=== PATIENT | female | born 1960 | race Caucasian/White ===

== ENCOUNTER 2019-05-20 16:53 | Emergency (ER) | payer OTHER ==
[~2019-05-20] VITALS: Ht 172.7 cm; Wt 108.9 kg
[~2019-05-20 16:53] MED LIST: DIOVAN320 MG PO
[2019-05-20] MEDS ORDERED: SODIUM CHLORIDE 0.9% 1000ML 1,000 ML IV STA (16:56)
--- OUTSIDE RECORDS SUMMARY | 2019-05-20 16:56 | XMS REPORT | Continuity of Care Document ---
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 [employer] Unavailable Unavailable Problems Problem Status Onset Date Classification Date Reported Comments Source Body mass index 30+ - obesity 01/08/2019 Diagnosis 01/08/2019 [facility] Elevated blood pressure 01/08/2019 Diagnosis 01/08/2019 [facility] Acute upper respiratory infection 01/08/2019 Diagnosis 01/08/2019 [facility] Dysuria 11/14/2018 Diagnosis 11/17/2018 [facility] Hypothyroidism 11/14/2018 Problem 01/08/2019 [facility] Hypertensive Disorder 11/14/2018 Problem 01/08/2019 [facility] Chronic Sinusitis Problem 01/08/2019 [facility] Allergic Rhinitis Problem 01/08/2019 [facility] Asthma Problem 01/08/2019 [facility] Skin Lesion Problem 01/08/2019 [facility] Medications Medication Details Route Status Patient Instructions Ordering Provider Order Date Source Fluticasone propionate 0.25 MG/ACTUAT / salmeterol 0.05 MG/ACTUAT Dry Powder Inhaler Advair Diskus 250 mcg-50 mcg/dose powder for inhalation Inhale 1 puff twice a day by inhalation route. Active [facility] benzonatate 200 MG Oral Capsule benzonatate 200 mg capsule Take 1 capsule 3 times a day by oral route as needed for 10 days. Active [facility] Azelastine hydrochloride 0.137 MG/ACTUAT / Fluticasone propionate 0.05 MG/ACTUAT Metered Dose Nasal [place] [Dymista] Dymista 137 mcg-50 mcg/spray nasal spray Take 1 spray twice a day by nasal route as directed for 14 days. Active [facility] levocetirizine dihydrochloride 5 MG Oral Tablet levocetirizine 5 mg tablet TAKE ONE (1) TABLET(S) BY MOUTH TWICE A DAY. Active [facility] Levothyroxine Sodium 0.025 MG Oral Tablet levothyroxine 25 mcg tablet Active [facility] Hydrochlorothiazide 25 MG / Losartan Potassium 100 MG Oral Tablet losartan 100 mg-hydrochlorothiazide 25 mg tablet Active [facility] Medrol (Sanjay) 4 mg tablets in a dose pack Medrol (Sanjay) 4 mg tablets in a dose pack Take 1 dose pk by oral route. Active [facility] montelukast 10 MG Oral Tablet montelukast 10 mg tablet TAKE ONE (1) TABLET(S) BY MOUTH ONCE A DAY IN THE EVENING. Active [facility] Phenazopyridine hydrochloride 200 MG Oral Tablet phenazopyridine 200 mg tablet TAKE 1 TABLET(S) 3 TIMES A DAY BY ORAL ROUTE FOR 3 DAYS. Active [facility] Budesonide 0.16 MG/ACTUAT / formoterol fumarate 0.0045 MG/ACTUAT Metered Dose Inhaler Symbicort 160 mcg-4.5 mcg/actuation HFA aerosol inhaler Active [facility] Budesonide 0.08 MG/ACTUAT / formoterol fumarate 0.0045 MG/ACTUAT Metered Dose Inhaler Symbicort 80 mcg-4.5 mcg/actuation HFA aerosol inhaler INHALE TWO (2) PUFFS BY MOUTH TWICE A DAY (IN THE MORNING AND EVENING). Active [facility] Hydrochlorothiazide 12.5 MG / valsartan 320 MG Oral Tablet valsartan 320 mg-hydrochlorothiazide 12.5 mg tablet TAKE ONE (1) TABLET(S) BY MOUTH ONCE A DAY. Active [facility] Hydrochlorothiazide 25 MG / valsartan 320 MG Oral Tablet valsartan 320 mg-hydrochlorothiazide 25 mg tablet TAKE ONE (1) TABLET(S) BY MOUTH ONCE A DAY. Active [facility] 200 ACTUAT Albuterol 0.09 MG/ACTUAT Metered Dose Inhaler [Ventolin] Ventolin HFA 90 mcg/actuation aerosol inhaler INHALE ONE (1) TO TWO (2) PUFFS BY MOUTH EVERY 4 TO 6 HOURS NEEDED. Active [facility] NITROFURANTOIN, MACROCRYSTALS 25 MG / Nitrofurantoin, Monohydrate 75 MG Oral Capsule [Macrobid] Macrobid 100 mg capsule Take 1 capsule every 12 hours by oral route for 7 days. Active [facility] Albuterol 0.09 MG/ACTUAT Metered Dose Inhaler Ventolin HFA 90 mcg/actuation aerosol inhaler INHALE ONE (1) TO TWO (2) PUFFS BY MOUTH EVERY 4 TO 6 HOURS NEEDED. Active [facility] Allergies, Adverse Reactions, Alerts No Known Medication Allergies Immunizations Immunization Date Given Site Status Last Updated Comments Source influenza, unspecified formulation 08/27/2010 completed [facility] Results Order Name Results Value Reference Range Date Interpretation Comments Source Influenza A negative 01/08/2019 [facility] Influenza B negative 01/08/2019 [facility] Urinalysis macro (dipstick) panel - Urine COLOR : Yellow 11/14/2018 [facility] Urinalysis macro (dipstick) panel - Urine CLARITY : Clear 11/14/2018 [facility] Urinalysis macro (dipstick) panel - Urine LEUKOCYTES : Small 11/14/2018 [facility] Urinalysis macro (dipstick) panel - Urine NITRITES : Positive 11/14/2018 [facility] Urinalysis macro (dipstick) panel - Urine UROBILINOGEN : 1 11/14/2018 [facility] Urinalysis macro (dipstick) panel - Urine PROTEIN : 100 11/14/2018 [facility] Urinalysis macro (dipstick) panel - Urine pH : 7.0 11/14/2018 [facility] Urinalysis macro (dipstick) panel - Urine BLOOD : Moderate 11/14/2018 [facility] Urinalysis macro (dipstick) panel - Urine SPECIFIC GRAVITY : 1.015 11/14/2018 [facility] Urinalysis macro (dipstick) panel - Urine KETONES : Small 11/14/2018 [facility] Urinalysis macro (dipstick) panel - Urine BILIRUBIN : Negative 11/14/2018 [facility] Urinalysis macro (dipstick) panel - Urine GLUCOSE Negative 11/14/2018 [facility] Pathology Reports No Data Provided for This Section Diagnostic Reports No Data Provided for This Section Consultation Notes No Data Provided for This Section Discharge Summaries No Data Provided for This Section History and Physicals No Data Provided for This Section Vital Signs Vital Sign Value Date Comments Source Diastolic (mm Hg) 80 01/08/2019 [facility] Height 69 01/08/2019 [facility] Systolic (mm Hg) 120 01/08/2019 [facility] Weight 240 01/08/2019 [facility] Diastolic (mm Hg) 96 11/14/2018 [facility] Height 69 11/14/2018 [facility] Systolic (mm Hg) 150 11/14/2018 [facility] Weight 240 11/14/2018 [facility] Encounters Location Location Details Encounter Type Encounter Number Reason For Visit Attending Provider ADM Date DC Date Status Source [place] - [facility] - [id number] Larios Ifeanyisuzy, [facility]: [address] [place] [address], Ph. [id number] Alysonorlando Orisakmichael 11/14/2018 [facility] [place] [facility] [id number] Larios Una, [facility]: [address] [place] [address], Ph. [id number] Carlosfidencioleila Suggssakarlwe 11/14/2018 [facility] [place] - [facility] - [id number] Shieldsorlnado Suggssuzy, [facility]: [address] [place] [address], Ph. [id number] Ric Orisakarlwe 01/08/2019 [facility] Procedures Procedure Code Date Perfomer Comments Source Delivery [address] [facility] Assessment and Plan No Data Provided for This Section Plan of Care No Data Provided for This Section Social History Social History Date Source Smoking Status Never Smoker 06/26/2011 [facility] Family History No Data Provided for This Section Advance Directives No Data Provided for This Section Functional Status No Data Provided for This Section
--- OUTSIDE RECORDS SUMMARY | 2019-05-20 16:56 | XMS REPORT | Clinical Summary ---
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 Active montelukast (SINGULAIR) 0 10 mg tablet 8 Active Problems Not on file Encounters Care Team Description Date Type Specialty Mehreen Santana MD Pap smear for cervical cancer screening (Primary Dx) 07/23/2018 Office Visit Obstetrics and Gynecology after 05/19/2018 Family History Medical History Relation Name Comments COPD Father Parkinsonism Father Heart disease Mother Relation Name Status Comments Father Mother Social History Date Tobacco Use Types Packs/Day Years Used Never Smoker Smokeless Tobacco: Never Used Alcohol Use Drinks/Week oz/Week Comments No Sex Assigned at Date Recorded Not on file Industry Job Start Date Occupation Not on file Not on file Not on file Travel End Travel History Travel Start No recent travel history available. Last Filed Vital Signs Time Taken Vital Sign Reading 07/23/2018 8:22 AM CDT Blood Pressure 183/107 07/23/2018 8:22 AM CDT Pulse 81 - Temperature - - Respiratory Rate - - Oxygen Saturation - - Inhaled Oxygen - Concentration 07/23/2018 8:22 AM CDT Weight 112 kg (246 lb) 07/23/2018 8:22 AM CDT Height 174.2 cm (5' 8.6") 07/23/2018 8:22 AM CDT Body Mass Index 36.75 Plan of Treatment Health Maintenance Due Date Last Done Comments BREAST CANCER SCREENING 2012 COLONOSCOPY SCREENING 2012 SHINGLES VACCINES (#1) 2012 INFLUENZA VACCINE 05/27/2019 Procedures Comments Procedure Name Priority Date/Time Associated Diagnosis PAP IG, RFX HPV ASCU Routine 07/23/2018 Pap smear for cervical 9:14 AM CDT cancer screening after 05/19/2018 Results * Pap IG, rfx HPV ASCU (07/23/2018 9:14 AM CDT) Diagnosis CommentComment: NEGATIVE FOR [facility] INTRAEPITHELIAL LESION AND MALIGNANCY. Specimen Comment [facility] adequacy Comment: Satisfactory for evaluation.Endocervical and/or squamous metaplastic cells (endocervical component) are present. Clinician CommentComment: Z12.4 [facility] provided ICD10 Performed by: CommentComment: Cecilio De La Vega, Chief Of Staff Doctor (ASCP) Comment . [facility] Note: Comment [facility] Comment: The Pap smear is a screening test designed to aid in the detection of premalignant and malignant conditions of the uterine cervix.It is not a diagnostic procedure and should not be used as the sole means of detecting cervical cancer.Both false-positive and false-negative reports do occur. Test Comment [facility] methodology Comment: This liquid based ThinPrep(R) pap test was screened with the use of an image guided system. Reflex Comment [facility] Comment: The HPV DNA reflex criteria were not met with this specimen result therefore, no HPV testing was performed. Specimen Swab Narrative Performed At Performed at:01 - [facility] [address] [facility], [id number] Assignment Editor: Keri Croft MD, Phone:[phone] Specimen Comment: No. of containers..01 ThinPrep Vial Performing Organization Address City/State/Zipcode Phone Number [facility] after 05/19/2018 Insurance Type Payer Benefit Subscriber ID Effective Phone Address Plan / Dates Group HMO/PPO [facility] xxxxxxxxx 2017-P THCARE resent CHOICE/CHO ICE + Advance Directives Patient has advance care planning documents on file. For more information, kimmie e contact: Elmo [address] [place] [address]
--- OUTSIDE RECORDS SUMMARY | 2019-05-20 16:56 | XMS REPORT | Encounter Summary ---
Author Organization Unknown Address [address] [place] [address] Phone [phone] Reason for Visit Medical Complaint Instructions 1. Acute upper respiratory infection upper respiratory infection (cold): care instructions benzonatate 200 mg capsule Medrol (Sanjay) 4 mg tablets in a dose pack rapid flu (A+B) 2. Elevated blood pressure elevated blood pressure: care instructions dash diet: care instructions blood pressure monitoring education 3. Body mass index 30+ - obesity body mass index: care instructions learning about healthy weight Discussion Note: None recorded. Plan of Care Patient Instructions An upper respiratory infection, or URI, is an infection of the nose, sinuses, or throat. URIs are spread by coughs, sneezes, and direct contact. The common cold is the most frequent kind of URI. The flu and sinus infections are other kinds of URIs. Almost all URIs are caused by viruses. Antibiotics won't cure them. But you can treat most infections with home care. This may include drinking lots of fluids and taking tgyw-edh-jhtkvne pain medicine. You will probably feel better in 4 to 10 days. The doctor has checked you carefully, but problems can develop later. If you notice any problems or new symptoms, get medical treatment right away. Follow-up care is a loja part of your treatment and safety. Be sure to make and go to all appointments, and call your doctor if you are having problems. It's also a good idea to know your test results and keep a list of the medicines you take. How can you care for yourself at home? To prevent dehydration, drink plenty of fluids, enough so that your urine is light yellow or clear like water. Choose water and other caffeine-free clear liquids until you feel better. If you have kidney, heart, or liver disease and have to limit fluids, talk with your doctor before you increase the amount of fluids you drink. Take an xvkn-ohc-puaxmsk pain medicine, such as acetaminophen (Tylenol), ibuprofen (Advil, Motrin), or naproxen (Aleve). Read and follow all instructions on the label. Before you use cough and cold medicines, check the label. These medicines may not be safe for young children or for people with certain health problems. Be careful when taking jvsz-tcg-vwoqpww cold or flu medicines and Tylenol at the same time. Many of these medicines have acetaminophen, which is Tylenol. Read the labels to make sure that you are not taking more than the recommended dose. Too much acetaminophen (Tylenol) can be harmful. Get plenty of rest. Do not smoke or allow others to smoke around you. If you need help quitting, talk to your doctor about stop-smoking programs and medicines. These can increase your chances of quitting for good. When should you call for help? Call 911 anytime you think you may need emergency care. For example, call if: You have severe trouble breathing. Call your doctor now or seek immediate medical care if: You seem to be getting much sicker. You have new or worse trouble breathing. You have a new or higher fever. You have a new rash. Watch closely for changes in your health, and be sure to contact your doctor if: You have a new symptom, such as a sore throat, an earache, or sinus pain. You cough more deeply or more often, especially if you notice more mucus or a change in the color of your mucus. You do not get better as expected. Reminders Provider Appointments None recorded. Lab Rapid Flu (A+B) 01/08/2019 [facility] Referral None recorded. Procedures None recorded. Surgeries None recorded. Imaging None recorded. Medications Name Start Date Advair Diskus 250 mcg-50 mcg/dose powder for inhalation Inhale 1 puff twice a day by inhalation route. benzonatate 200 mg capsule Take 1 capsule 3 times a day by oral route as needed for 10 days. Dymista 137 mcg-50 mcg/spray nasal spray Take 1 spray twice a day by nasal route as directed for 14 days. levocetirizine 5 mg tablet TAKE ONE (1) TABLET(S) BY MOUTH TWICE A DAY. levothyroxine 25 mcg tablet losartan 100 mg-hydrochlorothiazide 25 mg tablet Medrol (Sanjay) 4 mg tablets in a dose pack Take 1 dose pk by oral route. montelukast 10 mg tablet TAKE ONE (1) TABLET(S) BY MOUTH ONCE A DAY IN THE EVENING. phenazopyridine 200 mg tablet TAKE 1 TABLET(S) 3 TIMES A DAY BY ORAL ROUTE FOR 3 DAYS. Symbicort 160 mcg-4.5 mcg/actuation HFA aerosol inhaler Symbicort 80 mcg-4.5 mcg/actuation HFA aerosol inhaler INHALE TWO (2) PUFFS BY MOUTH TWICE A DAY (IN THE MORNING AND EVENING). valsartan 320 mg-hydrochlorothiazide 12.5 mg tablet TAKE ONE (1) TABLET(S) BY MOUTH ONCE A DAY. valsartan 320 mg-hydrochlorothiazide 25 mg tablet TAKE ONE (1) TABLET(S) BY MOUTH ONCE A DAY. Ventolin HFA 90 mcg/actuation aerosol inhaler INHALE ONE (1) TO TWO (2) PUFFS BY MOUTH EVERY 4 TO 6 HOURS NEEDED. Medications Administered None recorded. Vitals Height Weight BMI Blood Pressure 5 ft 9 in 240 lbs 35.4 kg/m2 (1) 126/82 mm[Hg] (2) 120/80 mm[Hg] Lab Results Date Name Specimen Result Interpretation Description Value Range Status Address Rapid Flu (A+B) Influenza a negative [facility]: [address] [place] [address] Influenza B negative [facility]: [address] [place] [address] Allergies Code Code System Name Reaction Severity Status Onset NKDA Problems Name Status Onset Date Source Hypothyroidism Active 11/14/2018 Hypertensive Disorder Active 11/14/2018 Chronic Sinusitis Active Encounter Allergic Rhinitis Active Encounter Asthma Active Encounter Skin Lesion Active Encounter Procedures Date Name Performed by Delivery Information not available Vaccine List Vaccine Type influenza, unspecified formulation 08/27/2010 Social History Smoking Status Never Smoker Past Encounters 01/08/2019 Acute Upper Respiratory Infection; Elevated Blood Pressure; Body Mass Index 30+ - Obesity [facility]: [address] [place] [address], Ph. History of Present Illness [id number] Reported By: Patient HPI: Location: chest. Quality: productive cough, hacking cough, dry cough. Duration: 2days. Context: no sick contacts, no foreign travel, non-smoker, asthma. Modifying factors: OTC medication. Associated Symptoms: no sputum production, no shortness of breath, no wheezing, no change in number of pillows needed to sleep at night, no sweats, no significant weight gain, no significant weight loss, no sore throat, no vomiting, no diarrhea, no rash, no nausea, no fever, fatigue, morning cough, muscle aches, headache Review of Systems:ROS as noted in the HPI Review of Systems Basic Reported By: Patient Physical Exam Adult Basic, Adult Female Complete Reported By: Patient Constitutional: General Appearance: obese. Level of Distress: NAD. Ambulation: ambulating normally Psychiatric: Mental Status: active and alert. Orientation: to time, to place, to person Kna-Ythw-Wlgnt-Throat: Ears: no lesions on external ear, no outer ear tenderness, EACs clear, TMs clear. Hearing: no hearing loss. Nose: no lesions on external nose, nares patent, no septal deviation, nasal passages clear, no sinus tenderness, no nasal discharge. Lips, Teeth, and Gums: no mouth or lip ulcers, no bleeding gums, normal dentition. Oropharynx: moist mucous membranes, no erythema, no exudates, tonsils not enlarged Lungs: Respiratory effort: no dyspnea, no tachypnea, no use of accessory muscles, no intercostal retractions. Auscultation: breath sounds normal Cardiovascular: Heart Auscultation: RRR, no murmurs
--- OUTSIDE RECORDS SUMMARY | 2019-05-20 16:56 | XMS REPORT | Encounter Summary ---
Author Organization Unknown Address [address] [place] [address] Phone [phone] Reason for Visit Medical Complaint Instructions 1. Dysuria painful urination (dysuria): care instructions Macrobid 100 mg capsule phenazopyridine 200 mg tablet urinalysis, dipstick culture, urine 2. Elevated blood pressure elevated blood pressure: care instructions dash diet: care instructions blood pressure monitoring education 3. Body mass index 30+ - obesity body mass index: care instructions learning about healthy weight Discussion Note: None recorded. Plan of Care Patient Instructions A urinary tract infection, or UTI, is a general term for an infection anywhere between the kidneys and the urethra (where urine comes out). Most UTIs are bladder infections. They often cause pain or burning when you urinate. UTIs are caused by bacteria and can be cured with antibiotics. Be sure to complete your treatment so that the infection goes away. How can you care for yourself at home? Take your antibiotics as directed. Do not stop taking them just because you feel better. You need to take the full course of antibiotics. Drink extra water and other fluids for the next day or two. This may help wash out the bacteria that are causing the infection. (If you have kidney, heart, or liver disease and have to limit fluids, talk with your doctor before you increase your fluid intake.) Avoid drinks that are carbonated or have caffeine. They can irritate the bladder. Urinate often. Try to empty your bladder each time. To relieve pain, take a hot bath or lay a heating pad set on low over your lower belly or genital area. Never go to sleep with a heating pad in place. To prevent UTIs Drink plenty of water each day. This helps you urinate often, which clears bacteria from your system. (If you have kidney, heart, or liver disease and have to limit fluids, talk with your doctor before you increase your fluid intake.) Urinate when you need to. Urinate right after you have sex. Change sanitary pads often. Avoid douches, bubble baths, feminine hygiene sprays, and other feminine hygiene products that have deodorants. After going to the bathroom, wipe from front to back. When should you call for help? Call your doctor now or seek immediate medical care if: Symptoms such as fever, chills, nausea, or vomiting get worse or appear for the first time. You have new pain in your back just below your rib cage. This is called flank pain. There is new blood or pus in your urine. You have any problems with your antibiotic medicine. Watch closely for changes in your health, and be sure to contact your doctor if: You are not getting better after taking an antibiotic for 2 days. Your symptoms go away but then come back. Reminders Provider Appointments None recorded. Lab Urinalysis, Dipstick 11/14/2018 [facility] Culture, Urine 11/14/2018 [facility] Referral None recorded. Procedures None recorded. Surgeries None recorded. Imaging None recorded. Medications Name Start Date Advair Diskus 250 mcg-50 mcg/dose powder for inhalation Inhale 1 puff twice a day by inhalation route. Dymista 137 mcg-50 mcg/spray nasal spray Take 1 spray twice a day by nasal route as directed for 14 days. levocetirizine 5 mg tablet TAKE ONE (1) TABLET(S) BY MOUTH TWICE A DAY. levothyroxine 25 mcg tablet losartan 100 mg-hydrochlorothiazide 25 mg tablet Macrobid 100 mg capsule Take 1 capsule every 12 hours by oral route for 7 days. montelukast 10 mg tablet TAKE ONE (1) TABLET(S) BY MOUTH ONCE A DAY IN THE EVENING. phenazopyridine 200 mg tablet Take 1 tablet 3 times a day by oral route for 3 days. Symbicort 160 mcg-4.5 mcg/actuation HFA aerosol inhaler Symbicort 80 mcg-4.5 mcg/actuation HFA aerosol inhaler INHALE TWO (2) PUFFS BY MOUTH TWICE A DAY (IN THE MORNING AND EVENING). Ventolin HFA 90 mcg/actuation aerosol inhaler INHALE ONE (1) TO TWO (2) PUFFS BY MOUTH EVERY 4 TO 6 HOURS NEEDED. Medications Administered None recorded. Vitals Height Weight BMI Blood Pressure 5 ft 9 in 240 lbs 35.4 kg/m2 150/96 mm[Hg] Lab Results Date Name Specimen Result Interpretation Description Value Range Status Address Urinalysis, Dipstick Color : Yellow [facility]: [address] [place] [address] Clarity : Clear [facility]: [address] [place] [address] Leukocytes : Small [facility]: [address] [place] [address] Nitrites : Positive [facility]: [address] [place] [address] Urobilinogen : 1 [facility]: [address] [place] [address] Protein : 100 [facility]: [address] [place] [address] Ph : 7.0 [facility]: [address] [place] [address] Blood : Moderate [facility]: [address] [place] [address] Specific [place] : 1.015 [facility]: [address] [place] [address] Ketones : Small [facility]: [address] [place] [address] Bilirubin : Negative [facility]: [address] [place] [address] Glucose Negative [facility]: [address] [place] [address] Allergies Code Code System Name Reaction Severity Status Onset NKDA Problems Name Status Onset Date Source Hypothyroidism Active 11/14/2018 Hypertensive Disorder Active 11/14/2018 Chronic Sinusitis Active Encounter Allergic Rhinitis Active Encounter Asthma Active Encounter Skin Lesion Active Encounter Procedures Date Name Performed by Delivery Information not available Vaccine List Vaccine Type influenza, unspecified formulation 08/27/2010 Social History Smoking Status Never Smoker Past Encounters 11/14/2018 Dysuria; Elevated Blood Pressure; Body Mass Index 30+ - Obesity [facility]: [address] [place] [address], Ph. History of Present Illness [id number] Reported By: Patient HPI: Location: urethra. Quality: pain, pressure, burning. Severity: mild. Context: not sexually active, no known exposure to STD, no prior history of STDs. Associated Symptoms: no fever/chills, no flank pain, no jaundice, no blood in the urine, no pain during urination, no vaginal discharge, no urgency, no blisters on genitals, no rash on genitals, no muscle aches, no headache, burning sensation during urination, urinary frequency, feeling of incomplete emptying of bladder Review of Systems:ROS as noted in the HPI Review of Systems Basic Reported By: Patient Physical Exam Adult Basic, Adult Female Complete Reported By: Patient Constitutional: General Appearance: healthy-appearing, well-nourished, well-developed. Level of Distress: NAD. Ambulation: ambulating normally Psychiatric: Mental Status: active and alert. Orientation: to time, to place, to person Lungs: Respiratory effort: no dyspnea, no tachypnea, no use of accessory muscles, no intercostal retractions. Auscultation: breath sounds normal Cardiovascular: Heart Auscultation: RRR, no murmurs Abdomen: Inspection and Palpation: soft, non-distended, no tenderness, no guarding, no rebound tenderness, no masses, no CVA tenderness
--- OUTSIDE RECORDS SUMMARY | 2019-05-20 16:56 | XMS REPORT | Encounter Summary ---
Author Organization Unknown Address [address] [place] [address] Phone [phone] Reason for Visit Medical Complaint Instructions 1. [...] Urinalysis, Dipstick Color : Yellow [facility]: [address] [place] [address] Clarity : Clear [facility]: [address] [place] [address] Leukocytes : Small [facility]: [address] [place] [address] Nitrites : Positive [facility]: [address] [place] [address] Urobilinogen : 1 [facility]: [address] [place] [address] Protein : 100 [facility]: [address] [place] [address] Ph : 7.0 [facility]: [address] [place] [address] Blood : Moderate [facility]: [address] [place] [address] Specific [place] : 1.015 [facility]: [address] [place] [address] Ketones : Small [facility]: [address] [place] [address] Bilirubin : Negative [facility]: [address] [place] [address] Glucose Negative [facility]: [address] [place] [address] Allergies Code Code System Name Reaction Severity [...] Index 30+ - Obesity [facility]: [address] [place] [address], Ph. History of Present Illness [id number] Reported By: Patient HPI: Location: urethra. Quality: [...]
[2019-05-20] MEDS ORDERED: PROMETHAZINE 25MG/ NS 50ML (IV) IV ONE (17:00)
[2019-05-20] MEDS ORDERED: FAMOTIDINE 20 MG/2 ML VIAL IV ONE ×2 (17:00→17:26)
[2019-05-20] MEDS ORDERED: HYDROCODONE/APAP 5MG-325MG TAB PO ONE (17:00)
[2019-05-20] MEDS ORDERED: KETOROLAC TROMETHAMINE 30 MG/ML VIAL IV ONE (17:00)
[2019-05-20] MEDS ORDERED: PROMETHAZINE HCL (IM) 25 MG/ML VIAL ONE (17:25)
[2019-05-20] MEDS ORDERED: HYDROCODONE/APAP 5MG-325MG TAB ONE (17:25)
[2019-05-20] MEDS ORDERED: SODIUM CHLORIDE 0.9% 50ML 50 ML ONE (17:25)
[2019-05-20] MEDS ORDERED: KETOROLAC TROMETHAMINE 30 MG/ML VIAL ONE (17:25)
[2019-05-20] MEDS ORDERED: SODIUM CHLORIDE 0.9% 1000ML 1,000 ML ONE (17:25)
[2019-05-20] MEDS ORDERED: CLONIDINE HCL 0.2 MG TAB PO ONE (18:00)
[2019-05-20] MEDS ORDERED: CLONIDINE HCL 0.1 MG TAB ONE (18:22)
--- NOTE | 2019-05-20 18:35 | Diagnostic Imaging Report ---
EXAM: CT Abdomen and Pelvis WITHOUT contrast INDICATION: Right flank pain COMPARISON: None. TECHNIQUE: Abdomen and pelvis were scanned utilizing a multidetector helical scanner from the lung base to the pubic symphysis without administration of IV contrast. Absence of intravenous contrast decreases sensitivity for detection of focal lesions and vascular pathology. Coronal and sagittal reformations were obtained. Routine protocol was performed. IV CONTRAST: None. ORAL CONTRAST: Water RADIATION DOSE: Total DLP: 821.5 mGy*cm Estimated effective dose: (DLP x 0.015 x size factor) mSv COMPLICATIONS: None FINDINGS: LINES and TUBES: None. LOWER THORAX: Unremarkable HEPATOBILIARY: Diffuse hepatic steatosis. No focal hepatic lesions. No biliary ductal dilation. GALLBLADDER: No radio-opaque stones or sludge. No wall thickening. SPLEEN: No splenomegaly. PANCREAS: No focal masses or ductal dilatation. ADRENALS: No adrenal nodules KIDNEYS/URETERS: No hydronephrosis. No cystic or solid mass lesions. 5 mm calcified stone in the upper pole of the right kidney on series 2, image 37. A 2 mm calcified stone is noted in the distal right ureter at the level of L5/S1 on series 2, image 71 with resultant mild hydroureteronephrosis. No calcified stones in the left kidney or left ureter. GI TRACT: No abnormal distention, wall thickening, or evidence of bowel obstruction. Appendix is normal. PELVIC ORGANS/BLADDER: Unremarkable. LYMPH NODES: No lymphadenopathy. VESSELS: Unremarkable. PERITONEUM / RETROPERITONEUM: No free air or fluid. BONES: Unremarkable. SOFT TISSUES: Unremarkable. IMPRESSION: 1. Mildly obstructing 2 mm distal right ureteral stone. 2. Additional 5 mm right renal stone. Signed by: Dr. María De La Cruz M.D. on 05/20/2019 6:31 PM
[2019-05-20] MEDS ORDERED: MORPHINE SULFATE INJ 4 MG/ML INJ 1ML IV PRN (18:45)
[2019-05-20] MEDS ORDERED: HYDRALAZINE HCL 20 MG/ML VIAL IV PRN (18:45)
[2019-05-20] MEDS ORDERED: ONDANSETRON HCL INJ 2MG/ML 2ML 2 MG/ML VIAL IV PRN (18:45)
[2019-05-20] MEDS ORDERED: ONDANSETRON HCL INJ 2MG/ML 2ML 2 MG/ML VIAL ONE (18:57)
[2019-05-20] MEDS ORDERED: MORPHINE SULFATE INJ 4 MG/ML INJ 1ML ONE (18:57)
--- NOTE | 2019-05-20 18:58 | NUR ---
report to LEAH Simmons
[2019-05-20 19:42] VITALS: BP 178/86
[2019-06-21] MEDS ORDERED: MONTELUKAST SOD10 MG PO (15:46)
[2019-06-21] MEDS ORDERED: DIOVAN HCT 3201 EACH PO (15:46)
[2019-06-21] MEDS ORDERED: LEVOCETIRIZINE D5 MG PO (15:46)
[2019-06-21] MEDS ORDERED: LEVOTHYROXINE50 MCG PO (15:46)
[2019-06-21] MEDS ORDERED: SYMBICORT 16010.2 GM INH (15:46)
[2019-06-21] MEDS ORDERED: HYDROCODON-ACE1 EA10 PO (15:46)
[2019-06-21] MEDS ORDERED: CIPRO500 MG PO (15:46)
== END 2019-05-20 19:49 | disposition home or self-care (01) ==
LOC: FSED 16:53
DX: M54.5 Low back pain (principal); R10.31 Right lower quadrant pain; R11.0 Nausea; N20.2 Calculus of kidney with calculus of ureter
CPT/HCPCS: 74176; 80053; 81003; 85025; 96374; 96375; 99284; J0360; J1885; J2270; J2405; J2550; J7030

== ENCOUNTER 2019-06-14 22:14 | Emergency (ER) | payer OTHER ==
[~2019-06-14] VITALS: Ht 175.3 cm; Wt 108.9 kg
--- OUTSIDE RECORDS SUMMARY | 2019-06-14 22:16 | XMS REPORT | Clinical Summary ---
Author Author [facility] Organization [facility] Address Unknown Phone Unavailable Care Team Providers Care Radiology Transporter Name Role Phone Waqas Escobar MD PCP [...] 07/23/2018 Office Visit Obstetrics and Gynecology after 06/13/2018 Family History Medical History Relation Name Comments COPD Father Parkinsonism Father Heart disease Mother Relation Name Status Comments Father Mother Social History Date Tobacco Use Types Packs/Day Years Used Never Smoker Smokeless Tobacco: Never Used Drinks/Week oz/Week Comments Alcohol Use No Sex Assigned at Date Recorded Not on file Industry Job Start Date Occupation Not on file Not on file Not on file Travel End Travel History Travel Start No recent travel history available. Last Filed Vital Signs Reading Time Taken Comments Vital Sign 183/107 07/23/2018 8:22 AM CDT Blood Pressure 81 07/23/2018 8:22 AM CDT Pulse - - Temperature - - Respiratory Rate - - Oxygen Saturation - - Inhaled Oxygen Concentration 112 kg (246 lb) 07/23/2018 8:22 AM CDT Weight 174.2 cm (5' 8.6") 07/23/2018 8:22 AM CDT Height 36.75 07/23/2018 8:22 AM CDT Body Mass Index Plan of Treatment Health Maintenance Due Date Last Done Comments BREAST CANCER SCREENING 2012 COLONOSCOPY SCREENING 2012 SHINGLES VACCINES (#1) 2012 INFLUENZA VACCINE 05/27/2019 Procedures Comments Procedure Name Priority Date/Time Associated Diagnosis PAP IG, RFX HPV ASCU Routine 07/23/2018 Pap smear for cervical 9:14 AM CDT cancer screening after 06/13/2018 Results * Pap IG, rfx HPV ASCU (07/23/2018 9:14 AM CDT) Diagnosis CommentComment: NEGATIVE FOR [facility] INTRAEPITHELIAL LESION AND MALIGNANCY. Specimen Comment [facility] adequacy Comment: Satisfactory for evaluation.Endocervical and/or squamous metaplastic cells (endocervical component) are present. Clinician CommentComment: Z12.4 [facility] provided ICD10 Performed by: CommentComment: Cecilio De La Vega, Customer Sales Specialist (ASCP) Comment . [facility] Note: Comment [facility] [...] Narrative Performed At Performed at:01 - [facility] [address] [facility], [id number] General Machine Operator: Keri Croft MD, Phone:[phone] Specimen Comment: No. 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
--- OUTSIDE RECORDS SUMMARY | 2019-06-14 22:17 | XMS REPORT | Continuity of Care Document ---
Author Author [employer] Address Unknown Phone Unavailable Care Team Providers Care Mri Manager Name Role Phone [employer] Unavailable Unavailable Problems Problem Status Onset Date [...] Fluticasone propionate 0.05 MG/ACTUAT Metered Dose Nasal [place] [Dymista] Dymista 137 mcg-50 mcg/spray nasal spray [...] Date Status Source [place] - [facility] - [id number] Larios Ifeanyisuzy, MICROSOFT APPLICATION DEVELOPER-C: [address] [place] [address], Ph. [id number] Alysonorlando Orisakmichael 11/14/2018 [facility] [place] - [facility] - [id number] Larios Una, [employer]OS[employer] APPLICATION DEVELOPER-C: [address] [place] [address], Ph. [phone] Carlosfidencioleila Suggssakarlwe 11/14/2018 [facility] [place] - [facility] - [id number] Shieldsorlando Suggssuzy, [employer] APPLICATION DEVELOPER-C: [address] [place] [address], Ph. [id number] Ric Orisakarlwe 01/08/2019 [facility] Procedures Procedure Code Date Perfomer Comments Source Delivery [address] [facility] Assessment and Plan No Data Provided for This Section Plan of Care No Data Provided for This Section Social History Social History Date Source Smoking Status Never Smoker 06/26/2011 [facility] Family History No Data Provided for This Section Advance Directives No Data Provided for This Section Functional Status No Data Provided for This Section
--- OUTSIDE RECORDS SUMMARY | 2019-06-14 22:17 | XMS REPORT ---
Author Author [facility] Address Unknown Phone Unavailable Care Team Providers Care Manager Strategic Development Name Role Phone Jennifer ALTAMIRANO Unavailable Unavailable Problems This patient has no known problems. Allergies, Adverse Reactions, Alerts This patient has no known allergies or adverse reactions. Medications This patient has no known medications. Results Test Description Test Time Test Comments Text Results Atomic Results Result Comments CT ABD/PEL WO CONTRAST-HOPD 2019-05-20 18:04:00 [place] [address] Patient Name: KEVON DE LA CRUZ MR #: [id number] : 1960 Age/Sex: 58/F Req #: [id number] Adm Physician: Ordered by: BATSHEVA ALTAMIRANO MD Report #: [id number] Location: [facility] Room/Bed: Procedure: [id number] HOPD/CT ABD/PEL WO CONTRAST-HOPD Exam Date: 05/20/19 Exam Time: 1747 REPORT STATUS: Signed EXAM: CT Abdomen and Pelvis WITHOUT contrast INDICATION: Right flank pain COMPARISON: None. TECHNIQUE: Abdomen and pelvis were scanned utilizing a multidetector helical scanner from the lung base to the pubic symphysis without administration of IV contrast. Absence of intravenous contrast decreases sensitivity for detection of focal lesions and vascular pathology. Coronal and sagittal reformations were obtained. Routine protocol was performed. IV CONTRAST: None. ORAL CONTRAST: Water RADIATION DOSE: Total DLP: 821.5 mGy*cm Estimated effective dose: (DLP x 0.015 x size factor) mSv COMPLICATIONS: None FINDINGS: LINES and TUBES: None. LOWER THORAX: Unremarkable HEPATOBILIARY: Diffuse hepatic steatosis. No focal hepatic lesions. No biliary ductal dilation. GALLBLADDER: No radio-opaque stones or sludge. No wall thickening. SPLEEN: No splenomegaly. PANCREAS: No focal masses or ductal dilatation. ADRENALS: No adrenal nodules KIDNEYS/URETERS: No hydronephrosis. No cystic or solid mass lesions. 5 mm calcified stone in the upper pole of the right kidney on series 2, image 37. A 2 mm calcified stone is noted in the distal right ureter at the level of L5/S1 on series 2, image 71 with resultant mild hydroureteronephrosis. No calcified stones in the left kidney or left ureter. GI TRACT: No abnormal distention, wall thickening, or evidence of bowel obstruction. Appendix is normal. PELVIC ORGANS/BLADDER: Unremarkable. LYMPH NODES: No lymphadenopathy. VESSELS: Unremarkable. PERITONEUM / RETROPERITONEUM: No free air or fluid. BONES: Unremarkable. SOFT TISSUES: Unremarkable. IMPRESSION: 1. Mildly obstructing 2 mm distal right ureteral stone. 2. Additional 5 mm right renal stone. Signed by: Dr. Lázaro Presley M.D. on 05/20/2019 6:31 PM Dictated By: LÁZARO PRESLEY MD 30 Transcribed By: KYLEE on 05/20/191830 COPY TO: BATSHEVA ALTAMIRANO MD
[2019-06-14] MEDS ORDERED: KETOROLAC TROMETHAMINE 30 MG/ML VIAL IV STA (22:41)
[2019-06-14] MEDS ORDERED: ONDANSETRON HCL INJ 2MG/ML 2ML 2 MG/ML VIAL IV STA (22:41)
[2019-06-14] MEDS ORDERED: SODIUM CHLORIDE 0.9% 1000 ML BAG IV ONE (22:45)
[2019-06-14] MEDS ORDERED: ONDANSETRON HCL INJ 2MG/ML 2ML 2 MG/ML VIAL ONE (22:50)
[2019-06-14] MEDS ORDERED: KETOROLAC TROMETHAMINE 30 MG/ML VIAL ONE (22:50)
[2019-06-14] MEDS ORDERED: SODIUM CHLORIDE 0.9% 1000ML 1,000 ML ONE (22:50)
--- NOTE | 2019-06-14 23:26 | Diagnostic Imaging Report ---
EXAM: CT Abdomen and Pelvis WITHOUT contrast INDICATION: Right flank pain COMPARISON: None. TECHNIQUE: Abdomen and pelvis were scanned utilizing a multidetector helical scanner from the lung base to the pubic symphysis without administration of IV contrast. Absence of intravenous contrast decreases sensitivity for detection of focal lesions and vascular pathology. Coronal and sagittal reformations were obtained. Routine protocol was performed. IV CONTRAST: None ORAL CONTRAST: None COMPLICATIONS: None RADIATION DOSE: Total DLP: 886 mGy*cm Estimated effective dose: (DLP x 0.015 x size factor) mSv CTDIvol has been reviewed. It is below the limits set by the Radiation Protocol Committee (RPC). Dose modulation, iterative reconstruction, and/or weight based adjustment of the mA/kV was utilized to reduce the radiation dose to as low as reasonably achievable. FINDINGS: LINES and TUBES: None. LOWER THORAX: Unremarkable HEPATOBILIARY: No focal hepatic lesions. No biliary ductal dilation. GALLBLADDER: No radio-opaque stones or sludge. No wall thickening. SPLEEN: No splenomegaly. PANCREAS: No focal masses or ductal dilatation. ADRENALS: No adrenal nodules KIDNEYS/URETERS: A 2 mm obstructive calculus at the right ureterovesicular junction with minimal upstream right hydroureteronephrosis. Increased right perinephric fat stranding. No cystic or solid mass lesions. A nonobstructive 0.6 cm calculus in a right renal interpolar calyx. GI TRACT: No abnormal distention, wall thickening, or evidence of bowel obstruction. There are diverticula within the colon without evidence of diverticulitis. Appendix is normal. PELVIC ORGANS/BLADDER: Unremarkable. LYMPH NODES: No lymphadenopathy. VESSELS: There is mild atherosclerotic disease in the aorta and major arterial branches. PERITONEUM / RETROPERITONEUM: No free air or fluid. BONES: Unremarkable. SOFT TISSUES: There is a fat containing para-umbilical hernia. IMPRESSION: The 2 mm obstructive right ureteral calculus is now at the right ureterovesicular junction with minimal upstream right hydroureteronephrosis. Increased right perinephric fat stranding could be due to superimposed infection. Signed by: Jann Newell DO on 06/14/2019 11:23 PM
[2019-06-21] MEDS ORDERED: SYMBICORT 16010.2 GM INH (15:46)
[2019-06-21] MEDS ORDERED: MONTELUKAST SOD10 MG PO (15:46)
[2019-06-21] MEDS ORDERED: DIOVAN HCT 3201 EACH PO (15:46)
[2019-06-21] MEDS ORDERED: HYDROCODON-ACE1 EA10 PO (15:46)
[2019-06-21] MEDS ORDERED: CIPRO500 MG PO (15:46)
[2019-06-21] MEDS ORDERED: LEVOCETIRIZINE D5 MG PO (15:46)
[2019-06-21] MEDS ORDERED: LEVOTHYROXINE50 MCG PO (15:46)
== END 2019-06-14 23:57 | disposition home or self-care (01) ==
LOC: FSED 22:14
DX: R10.31 Right lower quadrant pain (principal); M54.5 Low back pain; R11.2 Nausea with vomiting, unspecified; N20.1 Calculus of ureter
CPT/HCPCS: 74176; 80048; 81003; 85025; 99284; J1885; J2405; J7030

== ENCOUNTER → 2019-06-22 | Day surgery (SDC) | payer OTHER ==
--- NOTE | 2019-06-21 17:25 | Diagnostic Imaging Report ---
Exam: KUB Comparison: CT abdomen and pelvis, June 14, 2019 Clinical history: Preoperative clearance Findings: A 7 mm right nephrolithiasis is noted without significant interval changes. There is nonobstructive bowel gas pattern with retained feces in the colon. The regional osseous structures are unremarkable. Impression: 1. Right nephrolithiasis. Signed by: Dr. Edward Mensah MD on 06/21/2019 5:22 PM
[~2019-06-22] MED LIST changes: +CEFTRIAXONE SOD 1 GM/NS 50 ML 50 ML IV ONE; +CIPRO500 MG PO; +DEXAMETHASONE SOD PHOS INJ 4 MG/ML VIAL ONE; +DIOVAN HCT 3201 EACH PO; +EPHEDRINE SULFATE INJ 50 MG/10 ML SYR ONE; +FENTANYL CITRATE/PF 100MCG/2 ML INJ ONE; +HYDROCODON-ACE1 EA10 PO; +IOPAMIDOL 610MG/1ML 300 MG/ML VIAL IV ONE; +LEVOCETIRIZINE D5 MG PO; +LEVOTHYROXINE50 MCG PO; +LIDOCAINE HCL 2% LOCAL INJ 5 ML SDV VIAL INJ ONE; +MIDAZOLAM HCL 2 MG/2 ML VIAL ONE; +MONTELUKAST SOD10 MG PO; +ONDANSETRON HCL INJ 2MG/ML 2ML 2 MG/ML VIAL ONE; +PROPOFOL IV EMULSION 10 MG/ML 20 ML VIAL ONE; +SEVOFLURANE INHAL SOLN 250 ML PEN BTL ONE; +SYMBICORT 16010.2 GM INH
--- OUTSIDE RECORDS SUMMARY | 2019-06-22 05:12 | XMS REPORT | Continuity of Care Document ---
Author Author [employer] Address Unknown Phone Unavailable Care Team Providers Care Spine Specialist Name Role Phone Appian Unavailable Unavailable Problems Problem Status Onset Date [...] Fluticasone propionate 0.05 MG/ACTUAT Metered Dose Nasal [place] [Dymista] Dymista 137 mcg-50 mcg/spray nasal spray [...] Date Status Source [place] - [facility] - [id number] Larios Ifeanyisuzy, NOVELTY TWISTER OPERATOR-C: [address] [place] [address], Ph. [id number] Alysonorlando Orisakmichael 11/14/2018 [facility] [place] - [facility] - [id number] Larios Una, NOVELTY TWISTER OPERATOR-C: [address] [place] [address], Ph. [id number] Carlosfidencioleila Suggssakarlwe 11/14/2018 [facility] [place] - [facility] - [id number]_GtlrycarNba Shieldsorlando Suggssuzy, NOVELTY TWISTER OPERATOR-C: [address] [place] [address], Ph. [phone] Ric Orisakarlwe 01/08/2019 [facility] Procedures Procedure Code Date Perfomer Comments Source Delivery [address] [facility] Assessment and Plan No Data Provided for This Section Plan of Care No Data Provided for This Section Social History Social History Date Source Smoking Status Never Smoker 06/26/2011 [facility] Family History No Data Provided for This Section Advance Directives No Data Provided for This Section Functional Status No Data Provided for This Section
--- OUTSIDE RECORDS SUMMARY | 2019-06-22 05:12 | XMS REPORT | Clinical Summary ---
Author Author [facility] Address Unknown Phone Unavailable Care Team Providers Care Hr Payroll Coordinator Name Role Phone Waqas Escobar MD PCP [...] 07/23/2018 Office Visit Obstetrics and Gynecology after 06/21/2018 Family History Medical History Relation Name Comments [...] Health Maintenance Due Date Last Done Comments CERVICAL CANCER SCREENING 1983 BREAST CANCER SCREENING 2012 COLONOSCOPY SCREENING 2012 SHINGLES VACCINES (#1) 2012 INFLUENZA VACCINE 05/27/2019 Procedures Comments Procedure Name Priority Date/Time Associated Diagnosis PAP IG, RFX HPV ASCU Routine 07/23/2018 Pap smear for cervical 9:14 AM CDT cancer screening after 06/21/2018 Results * Pap IG, rfx HPV ASCU (07/23/2018 9:14 AM CDT) Diagnosis CommentComment: NEGATIVE FOR [facility] INTRAEPITHELIAL LESION AND MALIGNANCY. Specimen Comment [facility] adequacy Comment: Satisfactory for evaluation.Endocervical and/or squamous metaplastic cells (endocervical component) are present. Clinician CommentComment: Z12.4 [facility] provided ICD10 Performed by: CommentComment: Cecilio De La Vega, Poured Concrete Wall Technician (ASCP) Comment . [facility] Note: Comment [facility] [...] Swab Narrative Performed At [facility] - [facility] [address] [facility], [id number] Diagnostic Radiologist: Keri Croft MD, Phone:[phone] Specimen Comment: No. 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
[2019-06-22 05:58] LABS: ANION GAP 15.4 mmol/L (8-16); BLOOD UREA NITROGEN 14 mg/dL (7-26); BUN/CREATININE RATIO 16 (6-25); CALCIUM 9.7 mg/dL (8.4-10.2); CARBON DIOXIDE 26 mmol/L (22-29); CHLORIDE 100 mmol/L (98-107); CREATININE, SERUM 0.89 mg/dL (0.57-1.11); EST GLOMERULAR FILTRATION RATE > 60 ML/MIN (60-); GLUCOSE 90 mg/dL (74-118); POTASSIUM 3.4 mmol/L (3.5-5.1); SODIUM 138 mmol/L (136-145)
[2019-06-22 08:45] VITALS: BP 169/91
--- NOTE | 2019-06-23 13:21 | Operative Report ---
DATE OF PROCEDURE: 06/23/2019 SURGEON: Zackary Sands MD PREOPERATIVE DIAGNOSIS: Right kidney stone. POSTOPERATIVE DIAGNOSIS: Right kidney stone. PROCEDURES: 1. Staged right-sided shock wave lithotripsy. 2. Supervision of fluoroscopy. ANESTHESIA: General. ESTIMATED BLOOD LOSS: Minimal. COMPLICATIONS: None. INDICATIONS: Ms. Lobo is a very pleasant 58-year-old female with intermittently symptomatic right-sided kidney stone. She and I had a long discussion about alternatives, risks, and benefits of doing nothing, shock wave lithotripsy, ureteroscopy, percutaneous surgery, or open surgery. She voiced understanding options, alternatives, risks, and benefits, and elected to proceed. PROCEDURE IN DETAIL: After informed consent was obtained, the patient was taken to the operative suite, and placed supine on the operating table, underwent general anesthesia by the Anesthesia Service. She was placed in supine position. The stone was localized in the X, Y and Z planes. A total of 3000 shocks were delivered to the stone. Treatment was performed per treatment report. The patient tolerated the procedure well and was transferred to recovery room in excellent condition, no untoward effects noted. Zackary Sands MD ES/MODL /[id number] cc: Shawn Solis MD
== END | disposition home or self-care (01) ==
LOC: OR 05:10
PROVIDERS: ATTEND Urology
DX: N20.0 Calculus of kidney (principal); N20.1 Calculus of ureter; N13.39 Other hydronephrosis; R35.1 Nocturia; E03.9 Hypothyroidism, unspecified; I10 Essential (primary) hypertension; J45.909 Unspecified asthma, uncomplicated; Z68.35 Body mass index [BMI] 35.0-35.9, adult; Z84.1 Family history of disorders of kidney and ureter
CPT/HCPCS: 36415; 50590; 74018; 80048; 93005; J0696; J1100; J2001; J2250; J2405; J2704; J3010

== ENCOUNTER 2019-07-01 20:51 | Emergency (ER) | payer OTHER ==
[~2019-07-01] VITALS: Ht 175.3 cm; Wt 108.9 kg
[~2019-07-01 20:51] MED LIST changes: -CEFTRIAXONE SOD 1 GM/NS 50 ML 50 ML IV ONE; -DEXAMETHASONE SOD PHOS INJ 4 MG/ML VIAL ONE; -EPHEDRINE SULFATE INJ 50 MG/10 ML SYR ONE; -FENTANYL CITRATE/PF 100MCG/2 ML INJ ONE; -IOPAMIDOL 610MG/1ML 300 MG/ML VIAL IV ONE; -LIDOCAINE HCL 2% LOCAL INJ 5 ML SDV VIAL INJ ONE; -MIDAZOLAM HCL 2 MG/2 ML VIAL ONE; -ONDANSETRON HCL INJ 2MG/ML 2ML 2 MG/ML VIAL ONE; -PROPOFOL IV EMULSION 10 MG/ML 20 ML VIAL ONE; -SEVOFLURANE INHAL SOLN 250 ML PEN BTL ONE
--- OUTSIDE RECORDS SUMMARY | 2019-07-01 20:54 | XMS REPORT | Clinical Summary ---
Author Author [facility] Address Unknown Phone Unavailable Care Team Providers Care Sas Analyst Name Role Phone Waqas Escobar MD PCP [...] 07/23/2018 Office Visit Obstetrics and Gynecology after 06/30/2018 Family History Medical History Relation Name Comments [...] cervical 9:14 AM CDT cancer screening after 06/30/2018 Results * Pap IG, rfx HPV ASCU (07/23/2018 9:14 AM CDT) Diagnosis CommentComment: NEGATIVE FOR [facility] INTRAEPITHELIAL LESION AND MALIGNANCY. Specimen Comment [facility] adequacy Comment: Satisfactory for evaluation.Endocervical and/or squamous metaplastic cells (endocervical component) are present. Clinician CommentComment: Z12.4 [facility] provided ICD10 Performed by: CommentComment: Cecilio De La Vega, [place] Straightener Stamper (ASCP) Comment . [facility] Note: Comment [facility] [...] Swab Narrative Performed At Performed at:[facility] - [facility] [address] [facility], [id number] Ride Assembly Supervisor: Keri Croft MD, Phone:[phone] Specimen Comment: No. of containers..01 ThinPrep Vial Performing Organization Address City/State/Zipcode Phone Number [facility] after 06/30/2018 Insurance Type Payer Benefit Subscriber ID Effective Phone Address Plan / Dates Group HMO/PPO [facility] xxxxxxxxx 2017-P THCARE resent CHOICE/CHO ICE + Advance Directives For more information, please contact: [phone] Patient Art Therapist Explanation Type Date Recorded Advance Directives, Living Will and Medical Power of [employer] Furnace Tender
--- OUTSIDE RECORDS SUMMARY | 2019-07-01 20:54 | XMS REPORT | Continuity of Care Document ---
Author Author [employer] Address Unknown Phone Unavailable Care Team Providers Care Leather Sorter Name Role Phone Updater Unavailable Unavailable Problems Problem Status Onset Date [...] Fluticasone propionate 0.05 MG/ACTUAT Metered Dose Nasal [place] [Dymista] Dymista 137 mcg-50 mcg/spray nasal spray [...] Date Status Source [place] - [facility] - [id number] Larios Ifeanyisuzy, DEFENSIVE SECONDARY COACH-C: [address] [place] [address], Ph. [id number] Alysonorlando Orisakmichael 11/14/2018 [facility] [place] - [facility] - [id number] Larios Una, DEFENSIVE SECONDARY COACH-C: [address] [place] [address], Ph. [id number] Carlosfidencioleila Suggssakarlwe 11/14/2018 [facility] [place] - [facility] - [id number] Shieldsorlando Suggssuzy, DEFENSIVE SECONDARY COACH-C: [address] [place] [address], Ph. [id number] Ric Orisakarlwe 01/08/2019 [facility] Procedures Procedure Code Date Perfomer Comments Source Delivery [id number] [facility] Assessment and Plan No Data Provided for This Section Plan of Care No Data Provided for This Section Social History Social History Date Source Smoking Status Never Smoker 06/26/2011 [facility] Family History No Data Provided for This Section Advance Directives No Data Provided for This Section Functional Status No Data Provided for This Section
[2019-07-01] MEDS ORDERED: ONDANSETRON HCL INJ 2MG/ML 2ML 2 MG/ML VIAL IV ONE (21:13)
[2019-07-01] MEDS ORDERED: KETOROLAC TROMETHAMINE 30 MG/ML VIAL IV ONE (21:13)
[2019-07-01] MEDS ORDERED: SODIUM CHLORIDE 0.9% 1000ML 1,000 ML IV STA (21:13)
[2019-07-01] MEDS ORDERED: MORPHINE SULFATE 2 MG/ML SYR 1ML IV ONE (21:13)
[2019-07-01] MEDS ORDERED: KETOROLAC TROMETHAMINE 30 MG/ML VIAL ONE (21:40)
[2019-07-01] MEDS ORDERED: ONDANSETRON HCL INJ 2MG/ML 2ML 2 MG/ML VIAL ONE (21:40)
[2019-07-01] MEDS ORDERED: MORPHINE SULFATE INJ 4 MG/ML INJ 1ML ONE (21:41)
[2019-07-01] MEDS ORDERED: SODIUM CHLORIDE 0.9% 1000ML 1,000 ML ONE (21:41)
[2019-07-01] MEDS ORDERED: MORPHINE SULFATE INJ 4 MG/ML INJ 1ML IV ONE (21:45)
--- NOTE | 2019-07-01 22:07 | Diagnostic Imaging Report ---
Abdomen/KUB INDICATION: Flank pain, lithotripsy one week ago ^[id number] ^[id number] COMPARISON: Abdomen x-ray 06/21/2019. FINDINGS: Medical Devices: None Bowel: Unremarkable bowel gas pattern. No dilated bowel loops. There is formed stool in the right colon Free air: None Abdominal calcifications: A the right renal shadow is obscured due to overlying bowel. A calculus over the right renal shadow on previous exam is not visualized. No calculi over the left renal shadow or along the expected course of the ureters. Organomegaly: None Lung bases: Clear Bones: Unremarkable IMPRESSION: Unremarkable bowel gas pattern. No evidence of nephrolithiasis given the limitations of this image. Signed by: Dr. June Schuler MD on 07/01/2019 10:04 PM
[2019-07-01 22:43] VITALS: BP 174/89
== END 2019-07-01 22:45 | disposition home or self-care (01) ==
LOC: FSED 20:51
DX: R10.11 Right upper quadrant pain (principal); R11.0 Nausea; N23 Unspecified renal colic
CPT/HCPCS: 74018; 80053; 81003; 85025; 99283; J1885; J2270; J2405; J7030

== ENCOUNTER → 2019-09-28 | Outpatient (CLI) | payer OTHER ==
--- NOTE | 2019-09-28 08:13 | Diagnostic Imaging Report ---
EXAM: ABDOMEN-1VIEW (KUB) DATE: 09/28/2019 7:24 AM INDICATION: Calculus of kidney COMPARISON: 07/01/2019, 06/21/2019 FINDINGS: Bowel gas pattern is nonobstructive. Moderate volume of stool noted within the colon. No radiographically evident renal calculi or other abnormal intra-abdominal calcification is identified. No intraperitoneal free air is appreciated. No acute osseous abnormalities identified. IMPRESSION: No radiographic evidence for nephrolithiasis. Signed by: Dr. Shabbir Brown MD on 09/28/2019 8:09 AM
== END ==
LOC: RAD 07:17
PROVIDERS: ATTEND Urology
DX: N20.0 Calculus of kidney (principal)
CPT/HCPCS: 74018

== ENCOUNTER 2022-07-26 23:51 | Emergency (ER) | payer OTHER ==
[~2022-07-26] VITALS: Ht 175.3 cm; Wt 108.9 kg
[2022-07-27 00:10] LABS: BASOPHILS # (AUTO) 0.1 (0.0-0.1); BASOPHILS % 0.6 % (0.0-1.0); EOSINOPHILS # (AUTO) 0.3 (0.0-0.4); EOSINOPHILS % 3.9 % (0.0-6.0); HEMOGLOBIN 13.6 g/dL (12.0-16.0); LYMPHOCYTES # (AUTO) 3.4 (1.0-3.2); LYMPHOCYTES % 41.1 % (18.0-39.1); MEAN CORPUSCULAR HEMOGLOBIN 30.3 pg (28-32); MEAN CORPUSCULAR HGB CONC 32.4 g/dL (31-35); MEAN CORPUSCULAR VOLUME 93.5 fL (81-99); MONOCYTES # (AUTO) 0.9 (0.2-0.8); MONOCYTES % 11.1 % (4.4-11.3); NEUTROPHILS # (AUTO) 3.5 (2.1-6.9); NEUTROPHILS % 43.1 % (38.7-80.0); PLATELET COUNT 271 x10e3/uL (140-360); RED BLOOD COUNT 4.49 x10e6/uL (3.6-5.1); RED CELL DISTRIBUTION WIDTH 12.6 % (11.7-14.4)
[2022-07-27 00:19] LABS: INR 0.8; PROTHROMBIN TIME 11.9 seconds (11.9-14.5)
[2022-07-27 00:27] LABS: ALANINE AMINOTRANSFERASE 32 IU/L (0-55); ALBUMIN 3.9 g/dL (3.5-5.0); ALBUMIN/GLOBULIN RATIO 1.1 (0.8-2.0); ALKALINE PHOSPHATASE 75 IU/L (40-150); ANION GAP 16.4 mmol/L (8-16); BLOOD UREA NITROGEN 16 mg/dL (7-26); BUN/CREATININE RATIO 20 (6-25); CALCIUM 9.4 mg/dL (8.4-10.2); CARBON DIOXIDE 26 mmol/L (22-29); CHLORIDE 103 mmol/L (98-107); CREATINE KINASE 66 IU/L (29-168); CREATININE, SERUM 0.82 mg/dL (0.57-1.11); GLUCOSE 97 mg/dL (74-118); POTASSIUM 3.4 mmol/L (3.5-5.1); SODIUM 142 mmol/L (136-145)
[2022-07-27] MEDS ORDERED: SODIUM CHLORIDE 0.9% 100 ML ONE (00:51)
[2022-07-27] MEDS ORDERED: IOPAMIDOL 370 MG/ML 100 ML INFUS..BTL INJ ONE (00:51)
[2022-07-27] MEDS ORDERED: ENOXAPARIN SODIUM INJ 100 MG/ML SYR SC STA (02:01)
[2022-07-27 05:23] LABS: CREATINE KINASE 51 IU/L (29-168)
[2022-07-27 05:33] VITALS: BP 124/84
== END 2022-07-27 05:40 | disposition other institution (70) ==
LOC: ER 23:58
DX: I48.91 Unspecified atrial fibrillation (principal); R55 Syncope and collapse; I10 Essential (primary) hypertension; Z20.822 Contact with and (suspected) exposure to COVID-19; Z87.442 Personal history of urinary calculi; R94.31 Abnormal electrocardiogram [ECG] [EKG]
CPT/HCPCS: 36415; 70496; 70498; 71045; 80053; 82550; 82553; 84484; 85025; 85610; 85730; 93005; 99284; J1650; J7050; Q9967; U0002; 99285